=== PATIENT | male | born 1990 | race Caucasian/White ===

== ENCOUNTER → 2020-02-20 08:38 | Outpatient (CLI) | payer OTHER, SELFPAY ==
[2020-02-20 10:37] LABS: AST(SGOT) 21 U/L (15-37); Alanine Aminotransfer ALT/SGPT 33 U/L (16-61); Albumin, Serum 4.2 g/dL (3.2-5.0); Alkaline Phosphatase 78 U/L (45-117); Anion Gap 4 (5-15); BUN 12 mg/dL (7-18); BUN/Creat Ratio 9.8 RATIO (10-20); Calcium,Total 9.1 mg/dL (8.5-10.1); Chloride 104 mmol/L (98-107); Cholesterol 147 mg/dL (200); Creatinine, Serum 1.22 mg/dL (0.70-1.30); EST Glomerular Filtration Rate 74 mL/min (>60); Est Glom Filt Rate - Afr Amer 90 mL/min (>60); Glucose 111 mg/dL (74-106); High Density Lipoprotein 33 mg/dL; Potassium 4.2 mmol/L (3.5-5.1); Protein, Total 8.2 g/dL (6.4-8.2); Sodium Level 138 mmol/L (136-145); Triglycerides 362 mg/dL; Very Low Density Lipoprotein 72 mg/dL (5-40)
[2020-02-20 10:59] LABS: Microalbumin,Random Urine < 5.0 mg/L (NO RANGE EST.)
[2020-02-21 06:40] LABS: SARS-COV-2 TOTAL ABS Nonreactive (Nonreactive)
== END ==
PROVIDERS: PCP Family Medicine; Referring Provider Family Medicine; Visit Provider Family Medicine
DX: I10 Essential (primary) hypertension (principal); B34.9 Viral infection, unspecified
CPT/HCPCS: 36415; 80053; 80061; 82043; 82570; 86769

== ENCOUNTER → 2021-06-10 15:43 | Outpatient (CLI) | payer OTHER, SELFPAY ==
[2021-06-10 18:52] LABS: AST(SGOT) 28 U/L (15-37); Alanine Aminotransfer ALT/SGPT 52 U/L (16-61); Albumin, Serum 4.2 g/dL (3.2-5.0); Alkaline Phosphatase 75 U/L (45-117); Anion Gap 7 (5-15); BUN 15 mg/dL (7-18); BUN/Creat Ratio 12.1 RATIO (10-20); Calcium,Total 9.6 mg/dL (8.5-10.1); Chloride 102 mmol/L (98-107); Cholesterol 148 mg/dL (200); Creatinine, Serum 1.24 mg/dL (0.70-1.30); EST Glomerular Filtration Rate 72 mL/min (>60); Est Glom Filt Rate - Afr Amer 87 mL/min (>60); Globulin 4.4 g/dL (2.2-4.2); Glucose 106 mg/dL (74-106); High Density Lipoprotein 38 mg/dL; Potassium 4.1 mmol/L (3.5-5.1); Protein, Total 8.6 g/dL (6.4-8.2); Sodium Level 138 mmol/L (136-145)
[2021-06-10 18:58] LABS: Microalbumin:Creatinine Ratio 4.6 mg/g CRE (<30 mg/g CRE)
== END ==
PROVIDERS: PCP Family Medicine; Visit Provider Family Medicine
DX: Z00.00 Encounter for general adult medical examination without abnormal findings (principal); I10 Essential (primary) hypertension
CPT/HCPCS: 80053; 82043; 82465; 82570; 83718

== ENCOUNTER → 2022-11-03 | Outpatient (CLI) | payer OTHER, SELFPAY ==
[2022-11-03 17:27] LABS: Anion Gap 4 (5-15); BUN 17 mg/dL (7-18); BUN/Creat Ratio 13.2 RATIO (10-20); Calcium,Total 9.3 mg/dL (8.5-10.1); Chloride 105 mmol/L (98-107); Creatinine, Serum 1.29 mg/dL (0.70-1.30); EST Glomerular Filtration Rate 68 mL/min (>60); Est Glom Filt Rate - Afr Amer 83 mL/min (>60); Glucose 111 mg/dL (74-106); Potassium 4.1 mmol/L (3.5-5.1); Sodium Level 135 mmol/L (136-145)
[2022-11-03 17:54] LABS: Microalbumin,Random Urine < 5.0 mg/L (NO RANGE EST.)
== END | disposition home or self-care (01) ==
LOC: MFPLAB 12:14
PROVIDERS: PCP Family Medicine; Visit Provider Family Medicine
DX: Z00.01 Encounter for general adult medical examination with abnormal findings (principal); E66.01 Morbid (severe) obesity due to excess calories; I10 Essential (primary) hypertension; K58.9 Irritable bowel syndrome, unspecified
CPT/HCPCS: 36415; 80048; 82043; 82570

== ENCOUNTER → 2023-05-12 | Outpatient (CLI) | payer OTHER, SELFPAY ==
[2023-05-12 17:51] LABS: Absolute Lymphocyte Count 1.55 X10^3/uL (0.83-4.51); Absolute Neutrophil Count 5.5 X10^3/uL (2.0-7.7); Basophil# 0.02 X10^3/uL; Basophil% 0.3 % (0-1); Eosinophil# 0.09 X10^3/uL; Eosinophils% 1.2 % (0-5); Hematocrit 45.1 % (40-54); Hemoglobin 14.5 g/dL (13.0-16.5); Lymphocyte # 1.55 X10^3/ul (0.83-4.51); Mean Corp Hgb Conc 32.2 g/dL (32-36); Mean Corpuscular Hgb 29.1 pg (27.0-32.0); Mean Corpuscular Volume 90.6 fL (80-94); Mean Platelet Vol. 10.7 fl (6.2-12.0); Monocyte# 0.55 X10^3/uL; Monocyte% 7.1 % (0-10); NRBC Flagged by Analyzer 0 % (0-5); Neutrophil # 5.49 X10^3/uL (2.7-7.7); Neutrophil % 70.9 % (47-70); Platelet Count 195 K/mm3 (150-450); RBC Distribution Width CV 12.6 % (11.6-14.6); RBC Distribution Width SD 41.6 fl (35.1-43.9); Red Blood Count 4.98 M/mm3 (4.6-6.2); White Blood Count 7.7 K/mm3 (4.4-11.0)
[2023-05-12 18:10] LABS: AST(SGOT) 32 U/L (15-37); Alanine Aminotransfer ALT/SGPT 58 U/L (16-61); Albumin, Serum 4.2 g/dL (3.2-5.0); Alkaline Phosphatase 78 U/L (45-117); Anion Gap 4 (5-15); BUN 13 mg/dL (7-18); BUN/Creat Ratio 10.5 RATIO (10-20); Calcium,Total 9.7 mg/dL (8.5-10.1); Chloride 104 mmol/L (98-107); Creatinine, Serum 1.24 mg/dL (0.70-1.30); EST Glomerular Filtration Rate 71 mL/min (>60); Est Glom Filt Rate - Afr Amer 86 mL/min (>60); Globulin 4.3 g/dL (2.2-4.2); Glucose 107 mg/dL (74-106); Magnesium 2.3 mg/dL (1.6-2.6); Protein, Total 8.5 g/dL (6.4-8.2); Sodium Level 136 mmol/L (136-145)
== END | disposition home or self-care (01) ==
LOC: MFPLAB 16:27
PROVIDERS: PCP Family Medicine; Visit Provider Family Medicine
DX: K58.9 Irritable bowel syndrome, unspecified (principal)
CPT/HCPCS: 36415; 80053; 83735; 85025